=== PATIENT | male | born 1970 | race Caucasian/White ===

== ENCOUNTER 2022-03-11 21:08 | Emergency (ER) | payer MEDICAID ==
[~2022-03-11] VITALS: Ht 180.3 cm; Wt 108.9 kg
[2022-03-11 22:01] VITALS: BP_SYST 146
--- NOTE | 2022-03-11 22:06 | NUR ---
Patient triaged and placed in waiting room. VS checked and patient appears in no acute distress at this time. Accompanied by self , awaiting available bed, and MD notified of need for MSE.
--- NOTE | 2022-03-11 22:35 | NUR ---
MD Mack at bedside examining pt.
[2022-03-11 22:51] LABS: BASOPHILS # (AUTO) 0.1 K/uL (0.0-0.2); BASOPHILS % (AUTO) 0.9 % (0.0-2.0); EOSINOPHILS # (AUTO) 0.1 K/uL (0.0-0.4); EOSINOPHILS % (AUTO) 1.8 % (0.0-4.0); HEMATOCRIT 39.5 % (36-54); HEMOGLOBIN 14.2 g/dL (14.0-18.0); LYMPHOCYTES # (AUTO) 2.3 K/uL (1.0-5.5); LYMPHOCYTES % (AUTO) 35.2 % (20.5-51.5); MEAN CORPUSCULAR HEMOGLOBIN 35 pg (27-31); MEAN CORPUSCULAR HGB CONC 36 % (32-36); MEAN CORPUSCULAR VOLUME 96 fL (79.0-98.0); MONOCYTES # (AUTO) 0.6 K/uL (0.0-1.0); MONOCYTES % (AUTO) 9.1 % (1.7-9.3); NEUTROPHILS # (AUTO) 3.5 K/uL (1.8-7.7); PLATELET COUNT (AUTO) 169 K/uL (130-430); RED CELL DISTRIBUTION WIDTH 12.7 % (9.0-15.0); WHITE BLOOD COUNT (AUTO) 6.6 K/uL (4.8-10.8)
[2022-03-11 23:25] LABS: CALCIUM 9.2 mg/dL (8.4-11.0); CREATININE 0.87 mg/dL (0.55-1.30)
[2022-03-11 23:30] LABS: TOTAL BILIRUBIN 0.9 mg/dL (0.0-1.0)
[2022-03-12] MEDS ORDERED: MORPHINE 4 MG INJ. 4 MG/ML VIAL IVP ONE (01:45)
[2022-03-12] MEDS ORDERED: NACL 0.9% 1,000 ML IV ONE (01:45)
[2022-03-12] MEDS ORDERED: PROCHLORPERAZINE EDISYLATE 10 MG/2 ML VIAL IVP ONE (01:45)
--- NOTE | 2022-03-12 01:45 | NUR ---
# 20 gauge angiocath placed to L AC. Use of asceptic technique. Opsite placed over site. Blood return noted. Flushed with 10 cc of normal saline. No evidence of infiltration noted. Patient tolerated well.
--- NOTE | 2022-03-12 01:52 | NUR ---
Patient ambulatory to bed 3 for evaluation and treatment
--- NOTE | 2022-03-12 02:14 | NUR ---
Pt taken to CT for imaging via w/c
--- NOTE | 2022-03-12 02:15 | NUR ---
Pt ambulatory from home with c/o severe lower right quadrant abd pain x4 days. Pain is described as pressure like sensation. (+) N&V, (-) fevers. Last BM was x2 days ago. Denies any dysuria or urinary frequency. Arrived to ED in no acute distress. Breathing adequately on RA.
[2022-03-12 03:34] LABS: BILIRUBIN,URINE NEGATIVE (NEGATIVE); BLOOD, URINE NEGATIVE (NEGATIVE); CLARITY/URINE CLEAR (CLEAR); COLOR,URINE YELLOW (YELLOW); GLUCOSE,URINE NEGATIVE (NEGATIVE); KETONES,URINE NEGATIVE (NEGATIVE); LEUKOCYTE ESTERASE ,URINE NEGATIVE (NEGATIVE); NITRITE, URINE NEGATIVE (NEGATIVE); PROTEIN URINE NEGATIVE (NEGATIVE); UROBILINOGEN,URINE 0.2 (0.2-1.0)
[2022-03-12] MEDS ORDERED: TRAM50TA PO (04:52)
[2022-03-12] MEDS ORDERED: HYOS0.1275 PO (04:52)
[2022-03-12] MEDS ORDERED: ONDA-8 TL (04:52)
[2022-03-12] MEDS ORDERED: MILK OF MAGNESIA 30 ML UDC PO ONE (05:00)
--- NOTE | 2022-03-12 05:09 | NUR ---
Patient given written and verbal discharge instructions and verbalizes understanding. ER MD Mack discussed with patient the results and treatment provided. Patient in stable condition. ID arm band removed. IV catheter removed intact and dressing applied, no active bleeding. Rx sent to preferred pharmacy. Patient educated on pain management and to follow up with PMD. Pain Scale 0/10 Opportunity for questions provided and answered. Medication side effect fact sheet provided.
[2022-03-12 05:11] VITALS: BP_SYST 130
[2022-03-12] MEDS ORDERED: MILK OF MAGNESIA 30 ML UDC ONE (06:01)
== END 2022-03-12 05:10 | disposition home or self-care (01) ==
LOC: SED 21:08
DX: K59.00 Constipation, unspecified (principal); R10.31 Right lower quadrant pain; I88.9 Nonspecific lymphadenitis, unspecified; Z79.899 Other long term (current) drug therapy
CPT/HCPCS: 99284; 80053; 83690; 85025; 36415; 81003; 74176; 96374; 96361; 96375; 76376; J0780; J2270; J7030